=== PATIENT | female | born 1990 | race African-American/Black ===

== ENCOUNTER 2024-08-03 20:03 | Emergency (ER) | payer OTHER ==
[~2024-08-03] VITALS: Ht 152.4 cm; Wt 61.4 kg
[2024-08-03 20:13] VITALS: TEMP 98.6; O2SAT 97
[2024-08-03 20:41] VITALS: O2SAT 99
[2024-08-03 23:12] VITALS: BP 124/84; PULSE 87; RESP 16
[2024-08-03] MEDS: HYDROCODONE/ACETAMINOPHEN 5/325MG TABLET PO ONE (23:12)
[2024-08-04] MEDS ORDERED: IBUP-2029 MT (01:51)
== END 2024-08-04 02:20 | disposition home or self-care (01) ==
LOC: ER 20:03
DX: S16.1XXA Strain of muscle, fascia and tendon at neck level, initial encounter (principal); S39.012A Strain of muscle, fascia and tendon of lower back, initial encounter; S09.90XA Unspecified injury of head, initial encounter; Z98.890 Other specified postprocedural states; V49.40XA Driver injured in collision with unspecified motor vehicles in traffic accident, initial encounter; Y93.89 Activity, other specified; Y92.89 Other specified places as the place of occurrence of the external cause; Y99.8 Other external cause status
CPT/HCPCS: 81025; 99284